=== PATIENT | male | born 1935 | race Caucasian/White ===

== ENCOUNTER 2023-06-14 15:58 | Observation (INO) ==
[2023-06-14 16:50] LABS: ABS Lymphocytes 1.1 10^3/uL (1.0-4.8); ABS Monocytes 0.5 10^3/uL (0.0-1.1); ABS Neutrophils 4.4 10^3/uL (1.5-7.6); Eosinophil % 0.3 %; Hematocrit 37.7 % (38-53); Hemoglobin 13.2 g/dL (13.2-16.3); Lymphocyte % 17.9 %; Mean Platelet Volume 7.7 fL (7.5-11.2); Nucleated Red Blood Cells % 0.1 %/100WBC (0.0-0.8); Platelet Count 215 10^3/uL (150-450); Red Blood Count 3.88 10^6/uL (4.06-5.63); Red Cell Distribution Width 12.7 % (12-17)
[2023-06-14 16:56] LABS: INR 0.93 (0.83-1.13)
[2023-06-14 17:06] LABS: ALT 15 U/L (7-52); AST 14 U/L (13-39); Albumin 3.8 g/dL (3.2-5.2); Albumin/Globulin Ratio 1.4 (1-3); Alkaline Phosphatase 57 U/L (35-149); Anion Gap 9 mmol/L (2-16); Blood Urea Nitrogen 13 mg/dL (6-24); CO2 Carbon Dioxide 30 mmol/L (22-32); Calcium 8.7 mg/dL (8.6-10.3); Chloride 98 mmol/L (101-111); Creatinine, Serum 0.99 mg/dL (0.67-1.17); Globulin 2.8 g/dL (2-4); Glucose 120 mg/dL (70-100); Magnesium 1.6 mg/dL (1.9-2.7); Potassium 3.8 mmol/L (3.5-5.0); Sodium 137 mmol/L (135-145); Total Bilirubin 0.6 mg/dL (0.2-1.0); Total Protein 6.6 g/dL (6.4-8.9); eGFR CKD-EPI 74.2 (>60)
[2023-06-14 17:25] LABS: High Sens Troponin Baseline 5 pg/mL (<20)
[2023-06-14 17:36] LABS: Alcohol, S < 13 mg/dL (<13)
[2023-06-14] MEDS ORDERED: Magnesium Sulfate 2 gm BAG 2 GM/50 ML BAG IVPB ONE ×2 (18:02→22:25)
[2023-06-14 18:17] LABS: High Sensitivity Troponin 1 Hr 6 pg/mL (<20)
[2023-06-14 20:55] LABS: Urine Appearance Cloudy; Urine Bilirubin Negative (Negative); Urine Blood 3+ (Negative); Urine Color Yellow; Urine Glucose Negative (Negative); Urine Ketones 1+ (Negative); Urine Nitrite Negative (Negative); Urine Protein 1+(30 mg/dL) (Negative); Urine Specific Gravity 1.017 (1.002-1.030); Urine Urobilinogen Positive (Negative)
[2023-06-14 21:14] LABS: Urine Benzodiazepine Screen None Detected (None Detect); Urine Cannabinoids Screen Presumptive Positive (None Detect); Urine Opiates Screen None Detected (None Detect)
[2023-06-14 21:29] LABS: Urine Bacteria Absent (Absent); Urine Red Blood Cell 3+(>10/hpf) (Absent); Urine White Blood Cell 1+(6-10/hpf) (Absent)
[2023-06-14] MEDS ORDERED: Ondansetron 4 mg VIAL 2 MG/ML 2 ml VIAL IV PRN (21:58)
[2023-06-14] MEDS ORDERED: Polyethylene Glycol 3350 17 GM PACKET PO PRN (21:58)
[2023-06-14] MEDS ORDERED: Senna TAB 8.6 mg TAB PO PRN (21:58)
[2023-06-14] MEDS ORDERED: Al Hydrox/Mg Hydrox/Simet LIQ 30 ML UDC PO PRN (21:58)
[2023-06-14 22:50] LABS: Creatine Kinase 42 U/L (10-223)
[2023-06-14 23:07] LABS: TSH Ultra Thyroid Stim Horm 2.45 mcIU/mL (0.34-5.60)
[2023-06-14 23:19] LABS: Vitamin B12 290 pg/mL (180-914)
[2023-06-14 23:23] LABS: Vitamin D Total 25(OH) 32.2 ng/mL (20-50)
[2023-06-15] MEDS ORDERED: levETIRAcetam IV 750 MG in NS 0.9% 100 ml BAG 100 ML IVPB SCH
[2023-06-15 06:42] LABS: ABS Eosinophils 0.1 10^3/uL (0.0-0.5); ABS Lymphocytes 1.7 10^3/uL (1.0-4.8); ABS Monocytes 0.5 10^3/uL (0.0-1.1); ABS Neutrophils 2.8 10^3/uL (1.5-7.6); ABS Nucleated RBC 0.01 10^3/ul; Eosinophil % 1.2 %; Hematocrit 37.4 % (38-53); Hemoglobin 12.9 g/dL (13.2-16.3); Lymphocyte % 33.6 %; Mean Corpuscular Hemoglobin 33.6 pg (27-33); Mean Corpuscular Hgb Conc 34.6 g/dL (31-36); Mean Corpuscular Volume 97.2 fL (80-97); Nucleated Red Blood Cells % 0.3 %/100WBC (0.0-0.8); Platelet Count 212 10^3/uL (150-450); Red Blood Count 3.85 10^6/uL (4.06-5.63); Red Cell Distribution Width 12.9 % (12-17); White Blood Count 5.1 10^3/uL (3.6-10.2)
[2023-06-15 07:02] LABS: Calcium 8.5 mg/dL (8.6-10.3); Creatinine, Serum 0.89 mg/dL (0.67-1.17); Magnesium 2.3 mg/dL (1.9-2.7); eGFR CKD-EPI 83.5 (>60)
[2023-06-15] MEDS ORDERED: Potassium Chlor 20 meq TAB.ER PO ONE (07:46)
[2023-06-15] MEDS ORDERED: Gadoteridol (CONTRAST) 279.3 MG/ML 10 ML IV ONE (21:15)
[2023-06-16 06:17] LABS: Calcium 8.4 mg/dL (8.6-10.3); Creatinine, Serum 0.96 mg/dL (0.67-1.17); Potassium 3.7 mmol/L (3.5-5.0)
[2023-06-16 09:48] VITALS: BP 133/52
== END 2023-06-16 11:37 | disposition home or self-care (01) ==
LOC: ED 15:58 → EDHOLD 15:58 → SUATTDRO 21:58 → MED 23:16
PROVIDERS: ADMIT Internal Medicine; ATTEND Hospitalist